=== PATIENT | male | born 1960 ===

== ENCOUNTER 2018-03-12 09:39 | Emergency (ER) | payer OTHER ==
[~2018-03-12] VITALS: Ht 188 cm; Wt 99.8 kg
== END 2018-03-12 12:30 | disposition home or self-care (01) ==
LOC: ER 09:39
DX: S80.01XA Contusion of right knee, initial encounter (principal); M62.830 Muscle spasm of back; W01.198A Fall on same level from slipping, tripping and stumbling with subsequent striking against other object, initial encounter; Y93.89 Activity, other specified; Y92.814 Boat as the place of occurrence of the external cause; Y99.8 Other external cause status